=== PATIENT | female | born 1995 | race African-American/Black ===

== ENCOUNTER 2017-09-01 08:36 | Emergency (ER) | payer OTHER ==
[~2017-09-01] VITALS: Ht 177.8 cm; Wt 99.8 kg
[~2017-09-01 08:36] MED LIST: AMOXICILLIN 50500 M1 PO; CLARITIN10 MG PO; IBUPROFEN 600600 M1 PO; IBUPROFEN 800800 MG PO; MAALOX ADVANCE355 M1 PO; NAPROSYN500 MG PO; NOHOMEMEDICATIONS; NORCO 5-325 TA1 EACH PO; PREDNISONE 20 M20 M1 PO; PROVENTIL HFA6.7 G1 INH; ZPAK PO
[2017-09-01] MEDS ORDERED: MOBIC7.5 MG PO (09:47)
[2017-09-01 10:15] VITALS: BP 149/87
== END 2017-09-01 10:15 | disposition home or self-care (01) ==
LOC: ER 08:36
DX: S93.402A Sprain of unspecified ligament of left ankle, initial encounter (principal); W10.8XXA Fall (on) (from) other stairs and steps, initial encounter; Y93.89 Activity, other specified; Y92.89 Other specified places as the place of occurrence of the external cause; Y99.8 Other external cause status